=== PATIENT | female | born 1995 | race Caucasian/White ===

== ENCOUNTER 2020-10-03 13:23 | Emergency (ER) | payer OTHER ==
[~2020-10-03] VITALS: Ht 165.1 cm; Wt 90.5 kg
[2020-10-03] MEDS ORDERED: ACETAMINOPHEN 500 MG TABLET PO ONE (15:15)
[2020-10-03 17:11] VITALS: BP 125/78
== END 2020-10-03 17:10 | disposition home or self-care (01) ==
LOC: EMS 13:34
DX: S09.90XA Unspecified injury of head, initial encounter (principal); R42 Dizziness and giddiness; W07.XXXA Fall from chair, initial encounter; Y93.89 Activity, other specified; Y92.89 Other specified places as the place of occurrence of the external cause; Y99.8 Other external cause status
CPT/HCPCS: 70450; 99284